=== PATIENT | female | born 1965 | race Caucasian/White ===

== ENCOUNTER 2016-11-01 19:10 | Emergency (ER) | payer OTHER ==
[~2016-11-01] VITALS: Ht 170.2 cm; Wt 77.9 kg
[~2016-11-01 19:10] MED LIST: AZITHROMYCIN250 MG PO; CARAFATE1 GM PO; CLIMARA1 EACH TD; FIORICET,ESG1 TABLET PO; HYDROCHLOROTH12.5 M3 PO; HYDROCODON-ACE1 EAC7 PO; HYOPHEN TABLET1 EACH; K-DUR20 MEQ PO; LEVAQUIN500 MG PO; LORAZEPAM0.5 MG PO; LORTAB 5-325 M1 EACH PO; MONTELUKAST SOD10 MG PO; NEXIUM40 MG PO; NITROSTAT0.4 MG SL; NORCO 5/3251 TABLET PO; OMEPRAZOLE40 M1 PO; PERCOCET 10-321 EACH; PREDNISONE10 MG PO; PRILOSEC40 MG PO; TEGRETOL100 MG PO; TRAMADOL HCL50 MG PO; ZANTAC150 MG PO; ZANTAC300 MG PO
[2016-11-01 20:16] LABS: HEMATOCRIT 44.6 % (36.0-46.0); MCH 31.2 PG (29.0-34.0); MCHC 34.3 G/DL (30.0-36.0); MCV 90.8 FL (83-99); MEAN PLAT.VOLUME 10.1 uM^3 (9.5-12.4); PLATELET COUNT 388 K/uL (156-360); RBC DIS.WIDTH-CV 12.9 % (11.8-14.6); RED BLOOD COUNT 4.91 M/uL (3.80-5.20); WHITE BLOOD COUNT 13.4 K/uL (4.1-10.2)
[2016-11-01 20:31] LABS: CHLORIDE 108 mEq/L (99-109); POTASSIUM 3.5 mEq/L (3.7-5.4); SODIUM 142 mEq/L (136-147)
[2016-11-01 20:33] LABS: GLUCOSE 105 mg/dL (70-99)
[2016-11-01 20:34] LABS: ANION GAP 10 MEQ/L (2-14)
[2016-11-01 20:37] LABS: GFR ESTIMATE (CALCULATED) > 59 mL/min/; UREA NITROGEN (BUN) 10 mg/dL (9-23)
[2016-11-01 20:39] LABS: TROP-I INTERPRETATION NEGATIVE; TROPONIN-I < 0.01 ng/mL (0.0-0.30)
[2016-11-02 02:16] LABS: TROP-I INTERPRETATION NEGATIVE; TROPONIN-I < 0.01 ng/mL (0.0-0.30)
[2016-11-02 08:48] LABS: TROP-I INTERPRETATION NEGATIVE; TROPONIN-I < 0.01 ng/mL (0.0-0.30)
[2016-11-02] MEDS ORDERED: ASPIR-LOW81 MG PO (13:16)
[2016-11-02] MEDS ORDERED: NITROSTAT0.4 MG SL (13:16)
[2016-11-02 13:40] VITALS: BP 102/49
== END 2016-11-02 13:48 | disposition home or self-care (01) ==
LOC: EME 19:10 → EDOF 21:26 → EME 21:26 → EDOF 11-02 12:30
PROVIDERS: Family Medicine
DX: R07.89 Other chest pain (principal); F41.9 Anxiety disorder, unspecified; F32.9 Major depressive disorder, single episode, unspecified; R94.31 Abnormal electrocardiogram [ECG] [EKG]; Z72.0 Tobacco use; Z82.49 Family history of ischemic heart disease and other diseases of the circulatory system
CPT/HCPCS: 71020; 80048; 84484; 85027; 93005; 99281; 99285; G0378; J1650; J7512

== ENCOUNTER → 2017-04-08 | Outpatient (CLI) | payer OTHER ==
[~2017-04-08] MED LIST changes: +ASPIR-LOW81 MG PO
== END | disposition home or self-care (01) ==
LOC: CDC 13:11
DX: Z01.810 Encounter for preprocedural cardiovascular examination (principal); S46.111D Strain of muscle, fascia and tendon of long head of biceps, right arm, subsequent encounter; Z88.0 Allergy status to penicillin; Z88.6 Allergy status to analgesic agent
CPT/HCPCS: 93000

== ENCOUNTER 2018-03-30 13:34 | Emergency (ER) | payer OTHER ==
[~2018-03-30] VITALS: Ht 170.2 cm; Wt 74.5 kg
[2018-03-30] MEDS ORDERED: URO-MP CAPSULE1 EACH PO (14:16)
[2018-03-30 14:47] LABS: BASOPHIL (%) 0.8 % (0-1); BASOPHIL COUNT 0.1 K/uL (0-0.1); EOSINOPHIL (%) 5.5 % (0-5); EOSINOPHIL COUNT 0.7 K/uL (0-0.3); HEMATOCRIT 41.4 % (36.0-46.0); HEMOGLOBIN 14.7 G/DL (11.9-15.5); IMMATURE GRANULOCYTE (%) 0.4 % (0.0-0.7); LYMPHOCYTE (%) 23.2 % (15-42); LYMPHOCYTE COUNT 3.1 K/uL (1.0-2.8); MCHC 35.5 G/DL (30.0-36.0); MONOCYTE COUNT 0.5 K/uL (0-0.8); NEUTROPHIL (%) 66.1 % (45-76); NEUTROPHIL COUNT 8.9 K/uL (1.8-6.4); PLATELET COUNT 292 K/uL (156-360); RBC DIS.WIDTH-CV 12.7 % (11.8-14.6); RBC DIS.WIDTH-SD 41.9 % (39-53); WHITE BLOOD COUNT 13.5 K/uL (4.1-10.2)
[2018-03-30 14:58] LABS: CHLORIDE 105 mEq/L (99-109); POTASSIUM 2.7 mEq/L (3.7-5.4); SODIUM 145 mEq/L (136-147)
[2018-03-30 14:59] LABS: GLUCOSE 91 mg/dL (70-99)
[2018-03-30 15:00] LABS: APPEARANCE SL.HAZY ((CLEAR)); BILIRUBIN NEGATIVE; BLOOD LARGE; COLOR YELLOW ((YELLOW)); GLUCOSE (STRIP) NEGATIVE; KETONES NEGATIVE; LEUKOCYTES LARGE; NITRITE NEGATIVE; PROTEIN (STRIP) 30; SPECIFIC GRAVITY 1.004 (1.000-1.030); UROBILINOGEN 0.2 MG/DL (0.2-1.0)
[2018-03-30 15:03] LABS: CREATININE 0.7 mg/dL (0.6-1.3); GFR ESTIMATE (CALCULATED) > 59 mL/min/
[2018-03-30 15:04] LABS: UREA NITROGEN (BUN) 6 mg/dL (9-23)
[2018-03-30 15:04] LABS: BACTERIA RARE /HPF; EPITHELIAL CELLS NONE SEEN /HPF; MUCUS NONE SEEN /LPF; UCUL ADDED? YES; WHITE BLOOD CELLS TNTC /HPF (0-5)
[2018-03-30] MEDS ORDERED: MACROBID100 MG PO (16:13)
[2018-03-30] MEDS ORDERED: NORCO 10/3251 TABLET PO (16:14)
[2018-03-30] MEDS ORDERED: PYRIDIUM100 MG PO (16:14)
[2018-03-30 17:55] VITALS: BP 153/103
[2018-04-04] MEDS ORDERED: FISH OIL 1,0001 EAC7 PO (11:27)
== END 2018-03-30 17:57 | disposition home or self-care (01) ==
LOC: EME 13:34
PROVIDERS: Emergency Medicine
DX: N12 Tubulo-interstitial nephritis, not specified as acute or chronic (principal); B96.20 Unspecified Escherichia coli [E. coli] as the cause of diseases classified elsewhere; Z16.24 Resistance to multiple antibiotics; K21.9 Gastro-esophageal reflux disease without esophagitis; J44.9 Chronic obstructive pulmonary disease, unspecified; G43.909 Migraine, unspecified, not intractable, without status migrainosus; R01.1 Cardiac murmur, unspecified; F41.9 Anxiety disorder, unspecified; F17.200 Nicotine dependence, unspecified, uncomplicated; Z87.09 Personal history of other diseases of the respiratory system; Z90.49 Acquired absence of other specified parts of digestive tract; Z90.710 Acquired absence of both cervix and uterus; Z88.5 Allergy status to narcotic agent; Z88.0 Allergy status to penicillin; Z88.6 Allergy status to analgesic agent
CPT/HCPCS: 74176; 80048; 81003; 85025; 87077; 87086; 87186; 99281; 99285; J0696; J2405; J3010

== ENCOUNTER 2018-04-03 09:50 | Emergency (ER) | payer OTHER ==
[~2018-04-03] VITALS: Ht 170.2 cm; Wt 76.0 kg
[~2018-04-03 09:50] MED LIST changes: +MACROBID100 MG PO; +NORCO 10/3251 TABLET PO; +PYRIDIUM100 MG PO; +URO-MP CAPSULE1 EACH PO
[2018-04-03 10:50] LABS: BASOPHIL (%) 1.2 % (0-1); BASOPHIL COUNT 0.1 K/uL (0-0.1); EOSINOPHIL (%) 8.8 % (0-5); EOSINOPHIL COUNT 0.9 K/uL (0-0.3); HEMATOCRIT 43.2 % (36.0-46.0); HEMOGLOBIN 14.7 G/DL (11.9-15.5); IMMATURE GRANULOCYTE (%) 0.3 % (0.0-0.7); LYMPHOCYTE (%) 29.7 % (15-42); LYMPHOCYTE COUNT 2.9 K/uL (1.0-2.8); MCH 30.8 PG (29.0-34.0); MCV 90.6 FL (83-99); MONOCYTE (%) 3.7 % (3-12); MONOCYTE COUNT 0.4 K/uL (0-0.8); NEUTROPHIL (%) 56.3 % (45-76); NEUTROPHIL COUNT 5.5 K/uL (1.8-6.4); PLATELET COUNT 329 K/uL (156-360); RBC DIS.WIDTH-CV 12.5 % (11.8-14.6); RBC DIS.WIDTH-SD 41.6 % (39-53); RED BLOOD COUNT 4.77 M/uL (3.80-5.20); WHITE BLOOD COUNT 9.7 K/uL (4.1-10.2)
[2018-04-03 11:12] LABS: CHLORIDE 110 MEQ/L (99-109); CREATININE 0.6 MG/DL (0.6-1.3); GFR ESTIMATE (CALCULATED) > 59 mL/min/; GLUCOSE 90 mg/dL (70-99); POTASSIUM 2.9 MEQ/L (3.7-5.4); SODIUM 143 MEQ/L (136-147); UREA NITROGEN (BUN) 9 mg/dL (9-23)
[2018-04-03 11:13] LABS: APPEARANCE CLEAR ((CLEAR)); BILIRUBIN NEGATIVE; BLOOD SMALL; COLOR YELLOW ((YELLOW)); GLUCOSE (STRIP) NEGATIVE; KETONES NEGATIVE; LEUKOCYTES NEGATIVE; NITRITE NEGATIVE; PROTEIN (STRIP) NEGATIVE; SPECIFIC GRAVITY 1.008 (1.000-1.030); UROBILINOGEN 0.2 MG/DL (0.2-1.0)
[2018-04-03 11:16] LABS: BACTERIA NONE SEEN /HPF; EPITHELIAL CELLS RARE /HPF; MUCUS NONE SEEN /LPF; RED BLOOD CELLS 0-5 /HPF (0-5); WHITE BLOOD CELLS 0-5 /HPF (0-5)
[2018-04-03] MEDS ORDERED: K-DUR20 MEQ PO (12:34)
[2018-04-03 13:00] VITALS: BP 153/105
[2018-04-04] MEDS ORDERED: FISH OIL 1,0001 EAC7 PO (11:27)
== END 2018-04-03 14:24 | disposition home or self-care (01) ==
LOC: EME 09:50
PROVIDERS: Emergency Medicine
DX: N12 Tubulo-interstitial nephritis, not specified as acute or chronic (principal); B96.29 Other Escherichia coli [E. coli] as the cause of diseases classified elsewhere; Z90.49 Acquired absence of other specified parts of digestive tract; Z88.0 Allergy status to penicillin; F17.200 Nicotine dependence, unspecified, uncomplicated
CPT/HCPCS: 80048; 81003; 85025; 87086; 99281; 99285; J0696

== ENCOUNTER 2018-04-17 01:49 | Observation (INO) | payer OTHER ==
[~2018-04-17] VITALS: Ht 170.2 cm; Wt 76.3 kg
[~2018-04-17 01:49] MED LIST changes: +FISH OIL 1,0001 EAC7 PO
[2018-04-17 02:37] LABS: HEMATOCRIT 42.7 % (36.0-46.0); MCHC 35.1 G/DL (30.0-36.0); RBC DIS.WIDTH-CV 12.9 % (11.8-14.6); RBC DIS.WIDTH-SD 42.5 % (39-53); RED BLOOD COUNT 4.69 M/uL (3.80-5.20); WHITE BLOOD COUNT 15.1 K/uL (4.1-10.2)
[2018-04-17 02:50] LABS: CHLORIDE 105 mEq/L (99-109); POTASSIUM 2.9 mEq/L (3.7-5.4); SODIUM 144 mEq/L (136-147)
[2018-04-17 02:51] LABS: GLUCOSE 96 mg/dL (70-99)
[2018-04-17 02:55] LABS: CREATININE 0.7 mg/dL (0.6-1.3); GFR ESTIMATE (CALCULATED) > 59 mL/min/
[2018-04-17 02:56] LABS: UREA NITROGEN (BUN) 9 mg/dL (9-23)
[2018-04-17 02:58] LABS: APPEARANCE CLEAR ((CLEAR)); BILIRUBIN NEGATIVE; BLOOD SMALL; COLOR COLORLESS ((YELLOW)); GLUCOSE (STRIP) NEGATIVE; KETONES NEGATIVE; LEUKOCYTES NEGATIVE; NITRITE NEGATIVE; PROTEIN (STRIP) NEGATIVE; SPECIFIC GRAVITY 1.002 (1.000-1.030); UROBILINOGEN 0.2 MG/DL (0.2-1.0)
[2018-04-17 03:01] LABS: BACTERIA NONE SEEN /HPF; EPITHELIAL CELLS RARE /HPF; MUCUS NONE SEEN /LPF; RED BLOOD CELLS 0-5 /HPF (0-5); UCUL ADDED? NO; WHITE BLOOD CELLS 0-5 /HPF (0-5)
[2018-04-17 03:08] LABS: MAGNESIUM 1.6 mg/dL (1.3-2.7)
[2018-04-17 03:13] LABS: PHOSPHORUS 3.1 mg/dL (2.5-4.9)
[2018-04-17 03:15] LABS: CREATINE KINASE 50 IU/L (1-294)
[2018-04-17 04:10] LABS: PLAT.SUFFICIENCY ADEQUATE; PLATELET COUNT 325 K/uL (156-360)
[2018-04-17 04:25] LABS: TROP-I INTERPRETATION NEGATIVE; TROPONIN-I < 0.01 ng/mL (0.0-0.30)
[2018-04-17 07:15] VITALS: BP 140/84
[2018-04-17 12:22] VITALS: BP 129/80
[2018-04-17 16:00] VITALS: BP 139/83
[2018-04-17 19:39] VITALS: BP 126/67
[2018-04-17 23:42] VITALS: BP 140/77
[2018-04-18 03:40] VITALS: BP 119/63
[2018-04-18 06:44] LABS: HEMATOCRIT 38.4 % (36.0-46.0); HEMOGLOBIN 13.1 G/DL (11.9-15.5); MCH 31.6 PG (29.0-34.0); MCHC 34.1 G/DL (30.0-36.0); MCV 92.8 FL (83-99); PLATELET COUNT 276 K/uL (156-360); RBC DIS.WIDTH-CV 13.1 % (11.8-14.6); RBC DIS.WIDTH-SD 44.1 % (39-53); RED BLOOD COUNT 4.14 M/uL (3.80-5.20); WHITE BLOOD COUNT 8.8 K/uL (4.1-10.2)
[2018-04-18 07:08] LABS: ALBUMIN 3.3 G/DL (3.2-4.8); ALKALINE PHOSPHATASE 72 IU/L (3-129); ALT (GPT) 10 IU/L (3-49); AST (GOT) 10 IU/L (2-34); CHLORIDE 113 MEQ/L (99-109); CREATININE 0.6 MG/DL (0.6-1.3); GFR ESTIMATE (CALCULATED) > 59 mL/min/; GLUCOSE 95 mg/dL (70-99); SODIUM 143 MEQ/L (136-147); TOTAL BILIRUBIN 0.6 MG/DL (0.0-1.0); TOTAL PROTEIN 5.2 G/DL (6.4-8.3); UREA NITROGEN (BUN) 8 mg/dL (9-23)
[2018-04-18 07:10] LABS: POTASSIUM 4.8 MEQ/L (3.7-5.4)
[2018-04-18 09:04] VITALS: BP 130/64
[2018-04-18 11:31] VITALS: BP 128/74
[2018-04-18] MEDS ORDERED: KLOR-CON SPRINK8 MEQ PO (13:49)
== END 2018-04-18 15:18 | disposition home or self-care (01) ==
LOC: EME 01:49 → 2EASTP 05:37 → EDOF 05:37 → ENRESERV 05:39 → 2EASTP 07:12
PROVIDERS: Emergency Medicine; Internal Medicine
DX: E87.6 Hypokalemia (principal); N12 Tubulo-interstitial nephritis, not specified as acute or chronic; S83.92XA Sprain of unspecified site of left knee, initial encounter; Z87.440 Personal history of urinary (tract) infections; R01.1 Cardiac murmur, unspecified; F17.200 Nicotine dependence, unspecified, uncomplicated; D72.829 Elevated white blood cell count, unspecified; I10 Essential (primary) hypertension; Z88.0 Allergy status to penicillin; Z88.5 Allergy status to narcotic agent; Z88.6 Allergy status to analgesic agent
CPT/HCPCS: 71045; 74177; 80048; 80053; 81003; 82550; 83735; 84100; 84133; 84300; 84484; 85027; 93005; 99281; 99285; G0378; J0692; J1650; J3480; J7030

== ENCOUNTER 2018-04-19 00:30 | Emergency (ER) | payer OTHER ==
[~2018-04-19] VITALS: Ht 170.2 cm; Wt 75.4 kg
[~2018-04-19 00:30] MED LIST changes: +KLOR-CON SPRINK8 MEQ PO
[2018-04-19 01:25] LABS: HEMATOCRIT 44.3 % (36.0-46.0); HEMOGLOBIN 15.6 G/DL (11.9-15.5); MCH 32.3 PG (29.0-34.0); MCHC 35.2 G/DL (30.0-36.0); MCV 91.7 FL (83-99); RBC DIS.WIDTH-CV 12.9 % (11.8-14.6); RBC DIS.WIDTH-SD 43.8 % (39-53); RED BLOOD COUNT 4.83 M/uL (3.80-5.20); WHITE BLOOD COUNT 15.4 K/uL (4.1-10.2)
[2018-04-19 01:28] LABS: CHLORIDE 108 mEq/L (99-109); POTASSIUM 3.9 mEq/L (3.7-5.4); SODIUM 145 mEq/L (136-147)
[2018-04-19 01:30] LABS: GLUCOSE 96 mg/dL (70-99)
[2018-04-19 01:34] LABS: CREATININE 0.7 mg/dL (0.6-1.3); GFR ESTIMATE (CALCULATED) > 59 mL/min/
[2018-04-19 01:35] LABS: UREA NITROGEN (BUN) 9 mg/dL (9-23)
[2018-04-19 01:41] LABS: TROP-I INTERPRETATION NEGATIVE; TROPONIN-I < 0.01 ng/mL (0.0-0.30)
[2018-04-19 02:19] LABS: PLAT.SUFFICIENCY ADEQUATE; PLATELET COUNT 356 K/uL (156-360)
[2018-04-19 03:35] VITALS: BP 124/78
== END 2018-04-19 03:36 | disposition home or self-care (01) ==
LOC: EME 00:30
DX: R20.2 Paresthesia of skin (principal); J44.9 Chronic obstructive pulmonary disease, unspecified; K21.9 Gastro-esophageal reflux disease without esophagitis; F41.9 Anxiety disorder, unspecified; F17.200 Nicotine dependence, unspecified, uncomplicated; Z87.09 Personal history of other diseases of the respiratory system; Z86.79 Personal history of other diseases of the circulatory system; Z87.448 Personal history of other diseases of urinary system; Z90.49 Acquired absence of other specified parts of digestive tract; Z88.6 Allergy status to analgesic agent; Z88.5 Allergy status to narcotic agent; Z88.0 Allergy status to penicillin
CPT/HCPCS: 71046; 80048; 84484; 85027; 93005; 99281; 99285

== ENCOUNTER 2018-04-21 00:29 | Observation (INO) | payer OTHER ==
[~2018-04-21] VITALS: Ht 170.2 cm; Wt 74.5 kg
[2018-04-21 01:09] LABS: HEMATOCRIT 44.2 % (36.0-46.0); HEMOGLOBIN 15.5 G/DL (11.9-15.5); MCH 32.1 PG (29.0-34.0); MCHC 35.1 G/DL (30.0-36.0); MCV 91.5 FL (83-99); PLATELET COUNT 350 K/uL (156-360); RBC DIS.WIDTH-CV 12.8 % (11.8-14.6); RBC DIS.WIDTH-SD 42.8 % (39-53); RED BLOOD COUNT 4.83 M/uL (3.80-5.20); WHITE BLOOD COUNT 13.8 K/uL (4.1-10.2)
[2018-04-21 01:24] LABS: CHLORIDE 104 mEq/L (99-109); POTASSIUM 3.6 mEq/L (3.7-5.4); SODIUM 142 mEq/L (136-147)
[2018-04-21 01:25] LABS: GLUCOSE 101 mg/dL (70-99)
[2018-04-21 01:29] LABS: CREATININE 0.7 mg/dL (0.6-1.3); GFR ESTIMATE (CALCULATED) > 59 mL/min/
[2018-04-21 01:30] LABS: UREA NITROGEN (BUN) 12 mg/dL (9-23)
[2018-04-21 01:38] LABS: TROP-I INTERPRETATION NEGATIVE; TROPONIN-I < 0.01 ng/mL (0.0-0.30)
[2018-04-21 02:14] LABS: MAGNESIUM 1.7 mg/dL (1.3-2.7)
[2018-04-21 04:51] VITALS: BP 136/75
[2018-04-21 05:49] LABS: TROP-I INTERPRETATION NEGATIVE; TROPONIN-I < 0.01 ng/mL (0.0-0.30)
[2018-04-21 08:12] LABS: THYROTROPIN (TSH) 4.1 MIU/L (0.4-5.5)
[2018-04-21 09:40] VITALS: BP 140/65
[2018-04-21 11:07] VITALS: BP 113/68
[2018-04-21 12:37] LABS: TROP-I INTERPRETATION NEGATIVE; TROPONIN-I < 0.01 ng/mL (0.0-0.30)
== END 2018-04-21 13:30 | disposition home or self-care (01) ==
LOC: EME 00:29 → EDOF 03:06 → ENRESERV 03:27 → 4SOUTH 04:39
PROVIDERS: Family Medicine
DX: R07.89 Other chest pain (principal); E87.6 Hypokalemia; R00.2 Palpitations; R20.2 Paresthesia of skin; Z86.19 Personal history of other infectious and parasitic diseases; F17.200 Nicotine dependence, unspecified, uncomplicated; Z87.440 Personal history of urinary (tract) infections; Z82.49 Family history of ischemic heart disease and other diseases of the circulatory system; Z88.0 Allergy status to penicillin; Z88.5 Allergy status to narcotic agent; Z88.6 Allergy status to analgesic agent
CPT/HCPCS: 71046; 80048; 82607; 83735; 84443; 84484; 85027; 93005; 99281; 99285; G0378

== ENCOUNTER 2018-05-11 00:23 | Emergency (ER) | payer OTHER ==
[~2018-05-11] VITALS: Ht 170.2 cm; Wt 74.5 kg
[2018-05-11 01:26] LABS: BASOPHIL (%) 1.1 % (0-1); BASOPHIL COUNT 0.1 K/uL (0-0.1); EOSINOPHIL (%) 6.2 % (0-5); EOSINOPHIL COUNT 0.8 K/uL (0-0.3); HEMATOCRIT 39.8 % (36.0-46.0); HEMOGLOBIN 14.1 G/DL (11.9-15.5); IMMATURE GRANULOCYTE (%) 0.2 % (0.0-0.7); LYMPHOCYTE (%) 35.2 % (15-42); LYMPHOCYTE COUNT 4.3 K/uL (1.0-2.8); MCHC 35.4 G/DL (30.0-36.0); MCV 90.5 FL (83-99); MONOCYTE (%) 4.7 % (3-12); MONOCYTE COUNT 0.6 K/uL (0-0.8); NEUTROPHIL (%) 52.6 % (45-76); NEUTROPHIL COUNT 6.3 K/uL (1.8-6.4); PLATELET COUNT 297 K/uL (156-360); RBC DIS.WIDTH-CV 12.9 % (11.8-14.6); RBC DIS.WIDTH-SD 42.5 % (39-53); WHITE BLOOD COUNT 12.1 K/uL (4.1-10.2)
[2018-05-11 01:53] LABS: TROP-I INTERPRETATION NEGATIVE; TROPONIN-I < 0.01 ng/mL (0.0-0.30)
[2018-05-11 02:05] LABS: ALBUMIN 3.9 g/dL (3.2-4.8); CHLORIDE 108 mEq/L (99-109); POTASSIUM 3.1 mEq/L (3.7-5.4); SODIUM 143 mEq/L (136-147)
[2018-05-11 02:06] LABS: MAGNESIUM 1.5 mg/dL (1.3-2.7)
[2018-05-11 02:08] LABS: GLUCOSE 95 mg/dL (70-99); TOTAL PROTEIN 6.6 g/dL (6.4-8.3)
[2018-05-11 02:10] LABS: TOTAL BILIRUBIN 0.6 mg/dL (0.0-1.0)
[2018-05-11 02:11] LABS: ALKALINE PHOSPHATASE 92 IU/L (3-129); CREATININE 0.7 mg/dL (0.6-1.3); GFR ESTIMATE (CALCULATED) > 59 mL/min/
[2018-05-11 02:12] LABS: UREA NITROGEN (BUN) 7 mg/dL (9-23)
[2018-05-11 02:13] LABS: AST (GOT) 14 IU/L (2-34)
[2018-05-11 02:14] LABS: ALT (GPT) 11 IU/L (3-49)
[2018-05-11 02:25] LABS: APPEARANCE CLEAR ((CLEAR)); BILIRUBIN NEGATIVE; BLOOD NEGATIVE; COLOR COLORLESS ((YELLOW)); GLUCOSE (STRIP) NEGATIVE; KETONES NEGATIVE; LEUKOCYTES NEGATIVE; NITRITE NEGATIVE; PROTEIN (STRIP) NEGATIVE; SPECIFIC GRAVITY 1.002 (1.000-1.030); UROBILINOGEN 0.2 MG/DL (0.2-1.0)
[2018-05-11] MEDS ORDERED: K-DUR20 MEQ PO (02:48)
[2018-05-11 04:20] VITALS: BP 147/72
== END 2018-05-11 04:21 | disposition home or self-care (01) ==
LOC: EME 00:23
PROVIDERS: Emergency Medicine
DX: E87.6 Hypokalemia (principal); R25.2 Cramp and spasm; R03.0 Elevated blood-pressure reading, without diagnosis of hypertension; J44.9 Chronic obstructive pulmonary disease, unspecified; K21.9 Gastro-esophageal reflux disease without esophagitis; F17.200 Nicotine dependence, unspecified, uncomplicated; Z90.49 Acquired absence of other specified parts of digestive tract; Z88.0 Allergy status to penicillin; Z88.5 Allergy status to narcotic agent; Z88.6 Allergy status to analgesic agent
CPT/HCPCS: 80053; 81003; 83735; 84484; 85025; 93005; 99281; 99285; J7030